=== PATIENT | female | born 1940 | race Caucasian/White ===

== ENCOUNTER 2022-09-10 20:39 | Emergency (ER) | payer MEDICARE, SELFPAY ==
[2022-09-10 20:49] VITALS: BP 146/78; BP 153/75; PULSE 80; PULSE 90; RESP 11; TEMP 36.5; O2SAT 96; BMI 21.9
--- NOTE | 2022-09-10 20:52 | ED.ARRPALP ---
HPI - Arrhythmia/Palpitations General Chief Complaint: Arrhythmia/Palpitations Stated Complaint: A-fib/Chest Tightness/Dizziness Source: patient Mode of arrival: ambulatory Limitations: no limitations History of Present Illness HPI narrative: Patient history of paroxysmal AFib on Eliquis and metoprolol came from assisted living place was out for dinner start feeling dizzy and palpitation for last 3- 4 hours patient took extra metoprolol prior to EMS arrival when EMS arrived patient's heart rate was 150-170 broke without giving any medication on arrival patient's heart rate was in 80s sinus rhythm. No chest pain or shortness of breath at this time patient is symptomatic Related Data Allergies Allergy/AdvReac Type Severity Reaction Status Date / Time No Known Allergies Allergy Verified 09/10/22 20:52 Review of Systems Review of Systems: Yes all other systems are reviewed and are negative [facility] Social History Social History Advance Directives: No Advance Directives Information Provided: No Physical Exam Vital Signs: Vital Signs: Last Vital Signs Temp 97.7 F 09/10/22 20:49 Pulse 90 09/10/22 20:49 Resp 11 L 09/10/22 20:49 BP 153/75 H 09/10/22 20:49 Pulse Ox 96 09/10/22 20:49 O2 Del Method 09/10/22 20:49 BMI result Body Mass Index 21.9 Appearance: Alert. Oriented X3. No acute distress. Eyes: PERRLA, No Nystagmus ENT: Pharynx normal. Oral Mucosa moist Neck: Normal inspection. Neck supple. CVS: Normal heart rate and rhythm. Pulses normal. Respiratory: No respiratory distress. Equal air entry bilateral, no wheezing/rales/rhonchi Abdomen: Soft and nontender. Bowel sounds are present, Skin: Skin warm and dry. Normal skin color. Normal skin turgor. Extremities: No lower extremity edema. No calf tenderness Neuro: Oriented X 3. No motor deficit. MDM - Arrhythmia/Palpitations Medical Records Medical records narrative: 2199 Patient with episode of atrial fibrillation short lasting no chest pain at this time patient slightly elevated high sensitive troponin from demand ischemia EKG without any ischemic changes patient overall does not have any chest pain discharge patient home advised to continue Eliquis and metoprolol Lab Data Attestation: I reviewed the patient's lab results. Result diagrams: 09/10/22 21:30 09/10/22 21:30 Labs: Lab Results 09/10/22 09/10/22 09/10/22 Range/Units 21:30 21:30 21:30 WBC 8.5 (4.8-10.8) X10*3/uL RBC 3.73 L (4.20-5.50) X10*6/uL Hgb 11.4 L (12.0-16.0) g/dl Hct 34.3 L (37.0-47.0) % MCV 92.0 (80.0-98.0) fL MCH 30.6 (27.0-33.0) pg MCHC 33.2 (31.0-35.0) g/dl RDW 12.8 (11.0-16.0) % Plt Count 214 (160-400) X10*3/uL MPV 10.4 (9.4-12.3) fL Immature Gran % (Auto) 0.5 H (0.0-0.4) % Neut % (Auto) 80.8 H (45-73) % Lymph % (Auto) 11.9 L (20-40) % [place] % (Auto) 6.0 (2-11) % Eos % (Auto) 0.4 (0-4) % Baso % (Auto) 0.4 (0-2) % Lymph # (Auto) 1.0 L (1.2-4.9) X10*3/uL [place] # (Auto) 0.5 (0.1-1.2) X10*3/uL Eos # (Auto) 0.0 (0.0-0.4) X10*3/uL Baso # (Auto) 0.0 (0.0-0.2) X10*3/uL Abs Immat Gran (auto) 0.04 H (0.00-0.03) X10*3/uL Absolute Neuts (auto) 6.9 (2.0-8.3) x10*3/uL Absolute Nucleated RBC 0.000 (0.0-0.012) X10*3/uL Nucleated RBC % (auto) 0.0 (0.0-0.2) /100WBC Sodium 142 (135-145) mmol/L Potassium 3.7 (3.3-5.1) mmol/L Chloride 102 (96-108) mmol/L Carbon Dioxide 27 (22-29) mmol/L Anion Gap 17 (12-20) BUN 23 H (9-16) mg/dL Creatinine 1.00 (0.5-1.4) mg/dL Estim Creat Clear Calc 41.0 Estimated GFR 53 Random Glucose 185 H (60-115) mg/dL Calcium 9.3 (8.4-10.2) mg/dL Magnesium 1.8 (1.6-2.6) mg/dL Troponin I High Sens 94.1 H* (<3.5-17.0) ng/L ECG Data Attestation: I personally reviewed and interpreted this ECG as follows: Interpretation: Normal sinus rhythm heart rate 89 beats per minute right bundle-branch block no acute ST wave changes no acute ischemia Discharge Plan Discharge Clinical Impression: Atrial fibrillation Patient Disposition: Home, Self-Care Instructions: A-fib (Atrial Fibrillation) (ED) Additional Instructions: Continue taking medications as prescribed Report to the ER if recurrence of episodes/chest pain Follow-up with training and documentation specialist/passive
--- NOTE | 2022-09-10 20:53 | ECG_ITS ---
Test Reason : A FIB Blood Pressure : / mmHG Vent. Rate : 089 BPM Atrial Rate : 089 BPM P-R Int : 120 ms QRS Dur : 126 ms QT Int : 380 ms P-R-T Axes : 059 047 019 degrees QTc Int : 462 ms Sinus rhythm with Premature atrial complexes Right bundle branch block Abnormal ECG No previous ECGs available Referred By: Erik Haile Electronically Signed By:ARLEEN FIELDS MD
[2022-09-10 21:37] LABS: MANUAL DIFF FLAG NO
[2022-09-10 21:39] LABS: Basophils Percent Auto 0.4 % (0-2); Eosinophils Percent Auto 0.4 % (0-4); Hematocrit 34.3 % (37.0-47.0); Hemoglobin 11.4 g/dl (12.0-16.0); Imm Gran Abs Auto 0.04 X10*3/uL (0.00-0.03); Imm Gran Pct Auto 0.5 % (0.0-0.4); Lymphocytes Percent Auto 11.9 % (20-40); Mean Corpuscular HGB Conc 33.2 g/dl (31.0-35.0); Mean Corpuscular Hemoglobin 30.6 pg (27.0-33.0); Mean Platelet Volume 10.4 fL (9.4-12.3); Monocytes Absolute Auto 0.5 X10*3/uL (0.1-1.2); Neutrophils Absolute Auto 6.9 x10*3/uL (2.0-8.3); Neutrophils Percent Auto 80.8 % (45-73); Platelet Count 214 X10*3/uL (160-400); Red Blood Count 3.73 X10*6/uL (4.20-5.50); Red Cell Distribution Width 12.8 % (11.0-16.0); White Blood Count 8.5 X10*3/uL (4.8-10.8)
--- OUTSIDE RECORDS SUMMARY | 2022-09-10 21:51 | XMS_ITS | Encounter Summary ---
:1940 Author Care Team Providers Name Role Phone Korey Monroe MD Primary Care Provider [phone] Goldy Read MD Customer Consultant [phone] Reason for Visit *Well Woman Visit 67+(PLAN) Assessment and Plan 1. Gynecologic examination ? MAMMO, screening, digital, bilateral, w/ CAD ? urinalysis, dipstick 2. Depression screening Depression screen negative 3. Hormone replacement therapy pt takes 0.9mg / day ? Premarin 0.3 mg tablet Discussion Note Reviewed calcium and vitamin D needs, e xercise, and prevention of osteoporosis and screening DEXAs as indicated. Reviewed normal health maintenance in this age group including Pap and Mammogram screenin g and recommended normal check-ups with PCP. Cardiac health discussed. Periodic colonoscopy recommended as indicated by family history and history of polyps. Rx refill premarin 0.3 mg ( 3tabs daily) Patient educational handouts: No information available. Plan of Care Reminders Provider Appointments Annual Nurse Orthopedic 20 on or around Goldy Read MD 08/29/2023 Lab Urinalysis, Dipstick 08/29/2022 In-Office Order Referral None recorded. ? ? Procedures None recorded. ? ? Surgeries None recorded. ? ? Imaging MAMMO, Screening, 08/29/2022 [facility] Imaging Digital, Bilateral, W/ Center CAD Medications Name Start Date ? ? Cinnamon ? CoQ-10 ? Eliquis 5 mg tablet ? TAKE 1 TABLET BY MOUTH TWICE A DAY Evening [place] 500 mg capsule ? lisinopril 10 mg-hydrochlorothiazide 12.5 mg tablet ? TAKE 1 TABLET BY MOUTH EVERY DAY metoprolol succinate ER 25 mg tablet,extended release 24 hr ? [place] 3 ? Premarin 0.3 mg tablet ? Take 3 tablets once daily resveratrol ? Vitamin B-12 ER 2,000 mcg tablet,extended release ? Takes 1,00mg QD Vitamin C 500 mg capsule,extended release ? Vitamin D ? vitamin E 268 mg (400 unit) capsule ? Take 2 capsules every day by oral route. zinc ? 25mg 1 tab daily Medications Administered None recorded. Vitals Height Weight BMI Blood Pressure 5 ft 5.5 in 132 lbs 21.6 kg/m2 144/78 mm[Hg] Results Lab Results Date Name Specimen Result Interpretation Description Value Range Status Address ? 08/29/2022 Urinalysis, ? Leukocytes Negative ? ? In-Office Dipstick Order: I nternal Use Only D O Not Attach Compendium DO Not Attach Compendium , Do Not Delete/ronnie ge ? ? ? Nitrite negative ? ? In-Off ice Order: Int ernal Use Only D O Not Attach Compendium DO Not Attach Compendium , Do Not Delete/ronnie ge ? ? ? Urobilinogen Normal: 0.2 ? ? In-Office mg/dl Order: Int ernal Use Only D O Not Attach Compendium DO Not Attach Compendium , Do Not Delete/ronnie ge ? ? ? Protein Negative ? ? In-Off ice Order: Int ernal Use Only D O Not Attach Compendium DO Not Attach Compendium , Do Not Delete/ronnie ge ? ? ? Ph 5.0 ? ? In-Office Order: Int ernal Use Only D O Not Attach Compendium DO Not Attach Compendium , Do Not Delete/ronnie ge ? ? ? Blood Negative ? ? In-Offic e Order: Int ernal Use Only D O Not Attach Compendium DO Not Attach Compendium , Do Not Delete/ronnie ge ? ? ? Specific 1.010 ? ? In-Offi ce [place] Order: In ternal Use Only D O Not Attach Compendium DO Not Attach Compendium , Do Not Delete/ronnie ge ? ? ? Ketone Negative ? ? In-Offi ce Order: Int ernal Use Only D O Not Attach Compendium DO Not Attach Compendium , Do Not Delete/ronnie ge ? ? ? Bilirubin Negative ? ? In-O ffice Order: Int ernal Use Only D O Not Attach Compendium DO Not Attach Compendium , Do Not Delete/ronnie ge ? ? ? Glucose Negative ? ? In-Off ice Order: Int ernal Use Only D O Not Attach Compendium DO Not Attach Compendium , Do Not Delete/ronnie ge ? ? ? Appearance Clear ? ? In-Of fice Order: Int ernal Use Only D O Not Attach Compendium DO Not Attach Compendium , Do Not Delete/ronnie ge ? ? ? Color Yellow ? ? In-Office Order: Int ernal Use Only D O Not Attach Compendium DO Not Attach Compendium , Do Not Delete/ronnie ge Allergies Code Code System Name Reaction Severity Onset Erythromycin Base ? ? 012 Doxycycline Nausea ? 06/27/2012 3992 RxNorm Epinephrine Irregular Heart Rate Moderate ? Problems Name Status Onset Date Source ? Asthma Active 06/25/2012 ? Essential Hypertension Active 08/23/2022 ? Atrial Fibrillation Active 08/29/2022 ? Inconclusive Evaluation Finding Active ? Encounter Rectocele with Enterocele Active ? Encoun ter Procedures Date Name Performed by ? 07/23/2015 Dental Surgery Procedure Information not available Notes: tooth implant 11/26/1989 Hysterectomy Total with Removal Cervix a nd Bso Information not available Notes: bilateral ovarian endometriosis R adenofibroma and prolapse ? Oophorectomy Information not avai lable 08/24/2022 MAMMO, Diagnostic, Digital, Unilateral [facility] [address] [place] [address] [place] [address] [address] (Work [address]) 08/24/2022 US, Breast, Bilateral [facility] [address] [place] [address] [address] [place] [phone] (Work [address]) 08/29/2022 MAMMO, Screening, Digital, Bilateral, W/ CAD [facility] [address] [place] [phone] (Work Place) Vaccine List Vaccine Type COVID-19, mRNA, LNP-S, PF, 100 mcg/0.5 m L dose (Moderna) 12/23/2020 01/19/2021 10/29/2021 Social History Tobacco Smoking Status Never Smoker What is the highest grade or [id number] level of school you have completed or the highest degree you have received? How many children do you have? 2 Are you currently employed? N What was the date of your most 09/11/2018 recent tobacco screening? Drug Use? N Do you or have you ever used Never used electronic e-cigarettes or vape? cigarettes General stress level Low Do you feel safe at home? Y Notes: 2020 Is blood transfusion Y acceptable in an emergency? Do you have any children? Y How many years have you smoked 0 tobacco? What is your exercise level? Moderate Notes: lo ng walks/ gardening Have you recently (within the N last 12 weeks, or during a current ) traveled to or lived in a Zika-affected area? Has your partner forced you to N have sex or perform sex acts when you did not want to? What is your level of alcohol None consumption? Do you or have you ever used Never used smokeless tobacco smokeless tobacco? Education 2 Year College Does your partner physically N hurt you or threaten to hurt you? Does your partner control you N or any part of your life? Have you recently traveled N abroad? Are you afraid of your N partner? Does your partner insult, N scream at or talk down to you? What is your occupation? retired Do you feel stressed (tense, [id number] restless, nervous, or anxious, or unable to sleep at night)? Family History Relation Problem Onset Age of Age Notes Father Heart disease (No Information) N/A Mother Malignant tumor of (No Information) N/A decea sed ovary Sister Malignant tumor of (No Information) 63 (No N otes) esophagus Sister Malignant neoplastic (No Information) N/A pt. added directly disease (09/29/21) Son Depressive disorder (No Information) N/A (No Notes) Functional Status Unknown. Past Encounters 08/29/2022 Gynecologic Examination; Depression Scre ening; Hormone Replacement Therapy Goldy Read MD: [address] [place] [phone], Ph. History of Present Illness ? [facility] Annual DECISION UNIT RN Reported By: Patient Genitourinary symptoms: Menstrual cycle: postmenopau pepe. Urinary symptoms: No hematuria, No incontinence. Vulva: No genital lesion. Vagina: Normal vaginal discharge Breast symptoms: Breast: No breast pain, No b reast lump, No nipple discharge Endocrine symptoms: Sexual activity: No sexual c omplaints, No pain during intercourse, Normal libido, sexually active no. Menopausal symptoms: No menopausal symp toms, Normal vaginal lubrication Psychological symptoms: Psychological symptoms: No d epression, No anxiety, No PMDD Preventative measures: Preventive measures: ; colon oscopy at prescribed intervals Notes: <div>Routine DECISION UNIT RN exam. </div ><div>Pt still taking daily Eliquis for intermittent rodolfo b.</div><div>She takes premarin 0.3 mg ( 3 tabs daily) for m enopause sx and to prevent vaginal atrophy.</div><div>P t requesting refill. </div><div>Mammo nl 08/24</di v> Note: <div>swimmer declined.tb</div> Review of Systems ? [facility] Comprehensive Gynecology ROS Reported By: Patient Constitutional: Constitutional: no fatigue, no fever, no significant weight gain, no significant weight loss Skin: Skin: no abnormal moles, no rashes Eyes: Eyes: no irritation, no visi on changes ENMT: ENMT: no hearing loss, no ea r pain, no nose/sinus problems, no sore throat, no snoring, no dry mouth, no mouth ulcers Respiratory: Respiratory: no dyspnea / sh ortness of breath, no cough, no sputum production, no coughi ng up of blood (hemoptysis), no wheezing Cardiovascular: Cardiovascular: no chest bere n, no palpitations, no orthopnea Gastrointestinal: Gastrointestinal: no heartbu rn, no trouble swallowing (no dysphagia), no nausea, no vo miting, no abdominal pain, no bowel movement changes, no d iarrhea, no constipation, no rectal bleeding Genitourinary: Genitourinary: no pain/disco mfort urinating (no dysuria), no urinary urgency, no urinary frequency, no blood in urine (no hematuria), no incontinence, no waking to urinate (no nocturia), no flank pain, no irregular menses, no heavy or prolonged bleeding during pe riods (no menorrhagia), no infrequent periods (no oligo menorrhea), no absence of periods (no amenorrhea), no vaginal discharge, no vaginal odor, no vaginal itching, no vulvar l esions, no vulvar burning, no vulvar rash, no pelvic pain Breast: Breast: no breast tenderness bilateral. Breast lump: no breast lump , no breast pain . Nipp le inverted: no nipple inversion . Nipple discharge: no nipple discharge Endocrine: Menstrual: no menstrual prob lems, no PMDD symptoms. Menopausal: no menopausal sy mptoms. Sexual: no sexual problems Musculoskeletal: Musculoskeletal: no muscle a ches, no muscle weakness, no arthralgias/joint pain, no b ack pain Neurological: Neurologic: no headaches, no dizziness, no loss of consciousness, no weakness, no numbness, no seizures Psychological: Psych: no depression, no alc oholism, no sleep disturbances, no anxiety Hematologic/Lymphatic: Hematologic/Lymphatic no swo llen glands, no bruising, no bleeding gums, no family his tory of bleeding issues, no prolonged bleeding with a cu t Allergic/Immunologic: Allergy/Immunologic: no itch ing, no hives, no frequent sneezing, runny nose Notes: <p>Reported by patient on </p> Physical Exam ? [facility] Annual/Comprehensive Exa m Reported By: Patient Power Operator: Power Operator: carrie and roman bowen Constitutional: General Appearance: healthy- appearing, well-nourished, well-developed Skin: Appearance: no rashes, no le sions Neck: Neck: supple. Thyroid: no en largement, no nodules Lungs: Respiratory Effort: no inter costal retractions. Auscultation: clear to auscultation Cardiovascular: Auscultation: RRR, no murmur . Peripheral Vascular: no LLE edema Abdomen: Auscultation/Inspection/Palp ation: normal bowel sounds, soft, non-distended, no tenderness , no hepatomegaly, no splenomegaly, no masses, no CVA tenderness. H ernia: none palpated Breast: Inspection/Palpation: no ski n changes , no abnormal secretions , nipple appearance normal , n o tenderness , no distinct masses Female Genitalia: Vulva: no lesions. Vagina: n o tenderness, no erythema, no vaginal discharge; cuff normal, well supported good support, grade 1-2 rectocele and enterocele. Ce rvix: absent. Uterus: absent; surgically. Bladder bladder non distended. Urethra normal meatus, no urethral discharge, no ur ethral mass. Adnexa/Parametria: no parametrial tenderness, no o varian mass; absent surgically Rectal Exam: Rectum: normal perianal skin , normal sphincter tone, no masses Lymph Nodes: Palpation: non tender subman dibular nodes, non tender axillary nodes Psychiatric: Orientation: to time, to maki ce, to person. Mood and Affect: active and alert, normal mood, norm al affect
--- OUTSIDE RECORDS SUMMARY | 2022-09-10 21:51 | XMS_ITS ---
:1940 Author Care Team Providers Name Role Phone KINSEY CASAS MD Primary Care Provider [phone] CORNELL READ MD Associate Web Developer [phone] Allergies Code Code System Name Reaction Severity Status Onset Erythromycin Base ? ? Active Doxycycline Nausea ? Active 06/27/20 12 3992 RxNorm Epinephrine Irregular Heart Moderate Active ? Rate Medications Name Status Start Date Stop Date ? ? amoxicillin 500 mg capsule Completed ? 08/20 amoxicillin 875 mg tablet Unknown ? Not av ailable betamethasone dipropionate 0.05 % topical cream Completed ? 08/29/2022 APPLY 1 APPLICATION TOPICALLY ON THE SKIN TWICE A DAY Calcium 600 mg calcium (1,500 mg) tablet Completed ? 08/09/2017 chlorhexidine gluconate 0.12 % mouthwash Completed ? 08/20/2019 Cinnamon Active ? Not available ciprofloxacin 500 mg tablet Completed ? 08/26 Clenpiq 10 mg-3.5 gram-12 gram/160 mL oral solution Completed ? 08/20/2019 Co Q-10 (with Vit E) 100 mg-5 unit capsule Completed ? 09/09/2020 CoQ-10 Active ? Not available cranberry Completed ? 09/09/2020 Eliquis 5 mg tablet Active ? Not availabl e Evening Shiner 500 mg capsule Active ? Not available lisinopril 10 mg-hydrochlorothiazide 12.5 mg tablet Active ? Not available TAKE 1 TABLET BY MOUTH EVERY DAY magnesium 100 mg capsule Completed ? 017 methylprednisolone 4 mg tablets in a dose pack Completed ? 08/29/2022 TAKE DIRECTED metoprolol succinate ER 25 mg tablet,extended release 24 Active ? Not available hr metoprolol tartrate 25 mg tablet Completed ? 08/29/2022 TAKE 1 TABLET BY MOUTH DAILY NEEDED FOR TACHYCARDIA [place] 3 Active ? Not available Premarin 0.3 mg tablet Active ? Not avail able Take 3 tablets once daily Premarin 0.9 mg tablet Completed ? 11/04/202 1 Take by oral route. Probiotic Completed ? 08/29/2022 resveratrol Active ? Not available [place] Headache Powder 650 mg oral packet Unknown ? Not available tizanidine 2 mg tablet Completed ? 0 Vitamin B-12 ER 2,000 mcg tablet,extended release Active ? Not available Takes 1,00mg QD Vitamin C 500 mg capsule,extended release Active ? Not available Vitamin D Active ? Not available Vitamin D3 50 mcg (2,000 unit) tablet Completed ? 09/09/2020 vitamin E 100 unit capsule Unknown ? Not a vailable vitamin E 268 mg (400 unit) capsule Active ? Not available Take 2 capsules every day by oral route. zinc Active ? Not available 25mg 1 tab daily Hx-Ftbq-[id number] 15 mg tablet Completed ? Problems Name Status Onset Date Source [...] prolapse ? Oophorectomy Information not avai lable 07/22/2015 Scre[address]ound [address] [place], [place] [address] [address] (Work Place) 08/02/2016 US, Breast, Bilateral [address] [place] [address] (Work Place) 08/08/2017 US, Breast, Bilateral [address] [place] [address] (Work Place) 08/09/2018 US, Breast, Bilateral [address] [place] [address] (Work Place) 05/09/2019 MAMMO, Screening, Tomosynthesis, Bilater al [address] [place] [address] (Work Place) 08/12/2019 US, Breast, Bilateral [address] [place] [address] (Work Place) 09/14/2020 MAMMO, Screening, Digital, Bilateral, W/ CAD [address] [place] [address] (Work Place) 09/14/2020 US, Breast, Bilateral [address] [place] [address] (Work Place) 10/03/2021 MAMMO, Screening, Digital, Bilateral, W/ CAD [address] [place] [address] (Work Place) 08/24/2022 MAMMO, Diagnostic, Digital, Unilateral W [address] [place] [address] (Work Place) 08/24/2022 US, Breast, Bilateral [address] [place] [address] (Work Place) 08/29/2022 MAMMO, Screening, Digital, Bilateral, W/ CAD [address] [place] [address] (Work Place) Results Lab Results Date Name Specimen Result [...] Not Delete/ronnie ge ? ? ? Specific [place] 1.010 ? ? In-Office Order: Int ernal Use [...] Attach Compendium , Do Not Delete/ronnie ge 10/03/2021 Urinalysis, ? Leukocytes Negative ? ? In-Office [...] Not Delete/ronnie ge ? ? ? Specific [place] 1.010 ? ? In-Office Order: Int ernal Use [...] Attach Compendium , Do Not Delete/ronnie ge 08/20/2019 Urinalysis, ? Leukocytes Negative ? ? In-Office [...] Not Delete/ronnie ge ? ? ? Specific [place] 1.015 ? ? In-Office Order: Int ernal Use [...] Attach Compendium , Do Not Delete/ronnie ge 09/11/2018 Urinalysis, ? Interpretation negative ? ? In-Office Dipstick Order: I nternal Use Only D O Not Attach Compendium DO Not Attach Compendium , Do Not Delete/ronnie ge ? Urinalysis, ? Interpretation negative ? ? In-Office Dipstick Order: I nternal [...] Compendium , Do Not Delete/ronnie ge ? Urinalysis, ? Interpretation negative ? ? In-Office Dipstick Order: I nternal Use Only D O Not Attach Compendium DO Not Attach Compendium , Do Not Delete/ronnie ge ? ? ? Leukocytes Negative ? ? In- Office Order: Int ernal Use Only D O [...] Not Delete/ronnie ge ? ? ? Protein Trace ? ? In-Offic e Order: Int ernal Use Only D O Not Attach Compendium DO Not Attach Compendium , Do Not Delete/ronnie ge ? ? ? Ph 6.0 ? ? In-Office Order: Int ernal Use Only D O Not Attach Compendium DO Not Attach Compendium , Do Not Delete/ronnie ge ? ? ? Blood Negative ? ? In-Offic e Order: Int ernal Use Only D O Not Attach Compendium DO Not Attach Compendium , Do Not Delete/ronnie ge ? ? ? Specific [place] 1.015 ? ? In-Office Order: Int ernal Use [...] Not Delete/ronnie ge ? ? ? Color Pale Yellow ? ? In-Of fice Order: Int ernal Use Only D O Not Attach Compendium DO Not Attach Compendium , Do Not Delete/ronnie ge Past Encounters 08/29/2022 Gynecologic Examination; Depression Scre ening; Hormone Replacement Therapy Cornell Read MD: [address] [facility] [address], [place] [address], Ph. 10/03/2021 Gynecologic Examination; Depression Scre ening; Hormone Replacement Therapy; Screening Mammography Cornell Read MD: [address] [facility] [place] [address], [place] [address], Ph. Social History Tobacco Smoking Status Never Smoker Vaccine List Vaccine Type COVID-19, mRNA, LNP-S, PF, 100 mcg/0.5 m L dose (Moderna) 12/23/2020 01/19/2021 10/29/2021 Plan of Care Reminders Provider Appointments None recorded. ? ? Lab None recorded. ? ? Referral None recorded. ? ? Procedures None recorded. ? ? Surgeries None recorded. ? ? Imaging None recorded. ? ? Vitals 08/29/2022 10:20AM ANNUAL HEEL STAINER 20 Height Weight BMI Blood Pressure 5 ft 5.5 in 132 lbs 21.6 kg/m2 144/78 mm[Hg] 10/03/2021 12:00PM ANNUAL HEEL STAINER 15 Height Weight BMI Blood Pressure 5 ft 5.5 in 135 lbs 22.1 kg/m2 122/80 mm[Hg] 09/14/2020 11:00AM ANNUAL HEEL STAINER 15 Height Weight BMI Blood Pressure 5 ft 6 in 128 lbs 20.7 kg/m2 138/84 mm[Hg] 08/20/2019 02:15PM ANNUAL HEEL STAINER 15 Height Weight BMI Blood Pressure 5 ft 5.5 in 137.8 lbs 22.6 kg/m2 158/86 mm[Hg] 09/11/2018 01:15PM FOLLOW-UP VISIT 15 Height Weight BMI Blood Pressure 5 ft 5.5 in 135 lbs 22.1 kg/m2 160/80 mm[Hg] 08/09/2017 10:00AM ANNUAL HEEL STAINER 15 Height Weight BMI Blood Pressure 5 ft 6 in 140.1 lbs 22.6 kg/m2 138/78 mm[Hg] 08/04/2016 12:00PM ANNUAL HEEL STAINER 15 Height Weight BMI Blood Pressure 5 ft 6 in 135 lbs 21.8 kg/m2 154/90 mm[Hg] 07/29/2015 10:30AM ANNUAL HEEL STAINER 15 Height Weight BMI Blood Pressure 5 ft 6 in 133.4 lbs 21.5 kg/m2 140/80 mm[Hg]
[2022-09-10 21:57] LABS: Anion Gap 17 (12-20); Blood Urea Nitrogen 23 mg/dL (9-16); Calcium 9.3 mg/dL (8.4-10.2); Carbon Dioxide 27 mmol/L (22-29); Chloride 102 mmol/L (96-108); Estimated Glomerular Filt Rate 53; Glucose Random 185 mg/dL (60-115); Magnesium 1.8 mg/dL (1.6-2.6); Potassium 3.7 mmol/L (3.3-5.1); Sodium 142 mmol/L (135-145)
[2022-09-10 22:09] LABS: Troponin-I High Sensitivity 94.1 ng/L (<3.5-17.0)
== END 2022-09-10 22:32 | disposition home or self-care (01) ==
PROVIDERS: Emergency Provider Internal Medicine
DX: I49.9 Cardiac arrhythmia, unspecified (principal); R07.89 Other chest pain; R42 Dizziness and giddiness; I48.21 Permanent atrial fibrillation; Z79.899 Other long term (current) drug therapy
CPT/HCPCS: 36415; 80048; 83735; 84484; 85025; 93005; 99283